=== PATIENT | male | born 1950 | race Hispanic/Latino ===

== ENCOUNTER 2023-03-26 12:45 | Emergency (ER) | payer BC, OTHER ==
[2023-03-26] MEDS ORDERED: ASPIRIN 81 MG CHEWABLE TABLET ONE (13:10)
[2023-03-26 13:15] LABS: Absolute Lymphocytes (CBC) 1.2 K/uL (0.7-4.9); Hematocrit 41.1 % (39.6-49.0); Lymphocytes % 14.2 % (15.3-44.8); MPV 8.4 fL (7.6-11.3); RBC Red Blood Cell Count 4.51 M/uL (4.33-5.43)
[2023-03-26] MEDS ORDERED: HEPARIN 5000 UNIT/ML 1 ML VIAL ONE (13:18)
[2023-03-26] MEDS ORDERED: FENTANYL CITR 100 MCG/2 ML ONE (13:19)
[2023-03-26] MEDS ORDERED: HEPARIN/D5W 25,000 UNIT/500 ML BAG IV ONE (13:19)
[2023-03-26] MEDS ORDERED: TENECTEPLASE 50 MG/10 ML VIAL IV ONE (13:23)
--- NOTE | 2023-03-26 13:23 | ER ---
Nurse's Notes [facility] Name: Davie Adair Age: 72 yrs Sex: Male : 1950 Arrival Date: 03/26/2023 Time: 12:45 Bed 4 Private MD: Diagnosis: ST elevation (STEMI) myocardial infarction of inferior wall Presentation: 03/26 12:55 Chief complaint: Patient states: CP since 8 am, started while shoveling sand. ll1 Coronavirus screen: Vaccine status: Patient reports being unvaccinated. Client denies travel out of the [place] in the last 14 days. At this time, the client does not indicate any symptoms associated with coronavirus-19. Ebola Screen: Patient denies travel to an Ebola-affected area in the 21 days before illness onset. Initial Sepsis Screen: Does the patient meet any 2 criteria? No. Patient's initial sepsis screen is negative. Does the patient have a suspected source of infection? No. Patient's initial sepsis screen is negative. Risk Assessment: Do you want to hurt yourself or someone else? Patient reports no desire to harm self or others. Onset of symptoms was March 26, 2023. 12:55 Method Of Arrival: Ambulatory ll1 12:55 Acuity: STEVAN 3 ll1 Triage Assessment: 14:07 General: Appears uncomfortable, Behavior is calm, cooperative, appropriate for age. ll1 Pain: Complains of pain in chest Quality of pain is described as pressure. Cardiovascular: Reports chest pain, diaphoresis, fatigue, nausea. Historical: - Allergies: 12:55 No Known Allergies; ll1 - PMHx: 12:55 Diabetes mellitus; Hypertensive disorder; ll1 - PSHx: 12:55 None; ll1 - Immunization history:: Adult Immunizations up to date, Client reports having NOT received the Covid vaccine. - Social history:: Smoking status: Patient denies any tobacco usage or history of. Screenin:23 [facility] ED Fall Risk Assessment (Adult) History of falling in the last 3 months, jl7 including since admission No falls in past 3 months (0 pts) Confusion or Disorientation No (0 pts) Intoxicated or Sedated No (0 pts) Impaired Gait No (0 pts) Mobility Assist Device Used No (0 pt) Altered Elimination No (0 pt) Score/Fall Risk Level 0 - 2 = Low Risk Oriented to surroundings, Maintained a safe environment. Abuse screen: Denies threats or abuse. Denies injuries from another. Nutritional screening: No deficits noted. Tuberculosis screening: No symptoms or risk factors identified. Assessment: 13:25 Reassessment: No changes from previously documented assessment. Patient and/or family ll1 updated on plan of care and expected duration. Pain level reassessed. Patient is alert, oriented x 3, equal unlabored respirations, skin warm/dry/pink. 14:08 Pain: Pain does not radiate. Pain began 4 hours ago. ll1 14:08 Reassessment: No changes from previously documented assessment. Patient and/or family ll1 updated on plan of care and expected duration. Pain level reassessed. Patient is alert, oriented x 3, equal unlabored respirations, skin warm/dry/pink. 14:09 Reassessment: No changes from previously documented assessment. Report [facility] to [facility]. Vital Signs: 13:08 Weight 67.13 kg; jl7 13:13 BP 136 / 77; Pulse 63; Resp 16; Temp 97.4; Pulse Ox 98% on R/A; Weight 67.13 kg; Height ll1 5 ft. 7 in. ; Pain 8/10; 13:33 BP 136 / 75; Pulse 70; Resp 20; Pulse Ox 96% on R/A; ph 13:45 BP 117 / 79; Pulse 47; Resp 14; Pulse Ox 99% on 2 lpm NC; ph 13:56 BP 103 / 54; Pulse 46; Resp 20; Pulse Ox 98% on R/A; ll1 14:03 BP 108 / 57; Pulse 50; Resp 16; Pulse Ox 100% 2 lpm ; ll1 13:13 Body Mass Index 23.18 (67.13 kg, 170.18 cm) ll1 13:13 Pain Scale: Adult 1 ED Course: 12:47 Patient arrived in ED. im 12:47 Arm band placed on Patient placed in an exam room, on a stretcher. ll1 12:47 Patient has correct armband on for positive identification. Client placed on continuous jl7 cardiac and pulse oximetry monitoring. NIBP monitoring applied. 12:49 [facility] 8 12:49 Jonas Huang MD is Attending Physician. jr8 12:49 Attending Physician role handed off by Jonas Huang MD bs3 12:49 Conner Kim MD is Attending Physician. bs3 12:55 Jessica Jo, JANY is Primary Nurse. ll1 12:56 Triage completed. ll1 13:00 Initial lab(s) drawn, by ED staff, sent to lab. EKG done, by ED staff, reviewed by Maicol nicolas Roszak PA Inserted by JANY Lopez. Inserted saline lock: 20 gauge in right antecubital area, using aseptic technique. Blood collected. 13:05 Inserted saline lock: 20 gauge in right antecubital area, using aseptic technique. ll1 Blood collected. 13:24 Inserted saline lock: 20 gauge in left antecubital area, using aseptic technique. jl7 Patient maintains SpO2 saturation greater than 95% on room air. 13:33 No provider procedures requiring assistance completed. Patient transferred, IV remains ph in place. 13:37 XRAY Chest (1 view) In Process Unspecified. EDMS Administered Medications: 13:11 CANCELLED (Duplicate Order): Heparin (SD-Bolus with thrombolytic) - HEParin IVP 60 ph units/kg IVP once; Max 4000 units 13:13 Drug: Aspirin PO Chewable Tablet 324 mg Route: PO; ll1 13:55 Follow up: Response: No adverse reaction ll1 13:19 Drug: Heparin (SD-Bolus with thrombolytic) - HEParin IVP 60 units/kg {Co-Signature: ph ll1 (Floridalma Iverson RN).} Route: IVP; Site: right antecubital; 13:56 Follow up: Response: No adverse reaction ll1 13:20 Drug: Tenecteplase IV 35 mg {Co-Signature: ph (Floridalma Iverson RN).} Route: IV; Rate: ll1 bolus; Site: left antecubital; 13:56 Follow up: IV Status: Completed infusion; IV Intake: 7ml ll1 13:21 Drug: Heparin (SD Drip) - (D5W IV 500 ml, [place] [address] units) 12 units/kg/hr ll1 {Co-Signature: ph (Floridalma Iverson RN).} Route: IV; Rate: calculated rate; Site: right antecubital; 14:07 Follow up: Response: No adverse reaction; IV Status: Infusion continued ll1 13:24 Not Given (physician changed order): HEParin IV 5000 units IV at bolus once ll1 13:55 Drug: Ondansetron IVP 4 mg Route: IVP; Site: left antecubital; ll1 14:07 Follow up: Response: No adverse reaction; Nausea is decreased ll1 Medication: 13:25 VIS not applicable for this client. jl7 Intake: 13:56 IV: 7ml; Total: 7ml. ll1 Outcome: 13:23 ER care complete, transfer ordered by . hernandez 14:08 Transferred by helicopter to [facility], Transfer form completed. ll1 Note: Report called to [facility] [place] 14:08 Condition: stable 14:08 Instructed on the need for transfer. 14:14 Patient left the ED. ll1 Signatures: Dispatcher [employer] EDMS Maicol Khoury PA PA jr8 Floridalma Iverson, JANY RN ph Eloisa Nielsen RN RN jl7 Jessica Jo RN RN ll1 Conner Kim MD MD bs3 Alma Morris Patricia RN ph
--- NOTE | 2023-03-26 13:23 | EDPHYS ---
Physician Documentation [facility] Name: Davie Adair Age: 72 yrs Sex: Male : 1950 Arrival Date: 03/26/2023 Time: 12:45 Bed 4 Private MD: ED Physician Conner Kim HPI: 03/26 13:10 This 72 yrs old Male presents to ER via Ambulatory with complaints of Chest jr8 Pain. 13:10 Onset: The symptoms/episode began/occurred acutely, today, at 09:00. Associated signs jr8 and symptoms: Pertinent positives: The patient does not have any pertinent positive signs or symptoms associated with pediatric illness. 13:17 Modifying factors: The patient symptoms are alleviated by nothing, the patient symptoms jr8 are aggravated by activity. The patient has not experienced similar symptoms in the past. The patient has not recently seen a physician. 72-year-old male patient presented to the emergency room with sudden onset chest pain 09 100 this morning while working in the yard. Went in the house to rest and was unrelieved with pain. Told family at that time which brought him to the emergency room.. Historical: - Allergies: 12:55 No Known Allergies; ll1 - PMHx: 12:55 Diabetes mellitus; Hypertensive disorder; ll1 - PSHx: 12:55 None; ll1 - Immunization history:: Adult Immunizations up to date, Client reports having NOT received the Covid vaccine. - Social history:: Smoking status: Patient denies any tobacco usage or history of. ROS: 13:17 Eyes: Negative for injury, pain, redness, and discharge, ENT: Negative for injury, jr8 pain, and discharge, Neck: Negative for injury, pain, and swelling, Respiratory: Negative for shortness of breath, cough, wheezing, and pleuritic chest pain, Abdomen/GI: Negative for abdominal pain, nausea, vomiting, diarrhea, and constipation, Back: Negative for injury and pain, MS/Extremity: Negative for injury and deformity, Skin: Negative for injury, rash, and discoloration, Neuro: Negative for headache, weakness, numbness, tingling, and seizure. 13:17 Cardiovascular: Positive for chest pain, Negative for edema, orthopnea, palpitations, paroxysmal nocturnal dyspnea. Exam: 13:17 Eyes: Pupils equal round and reactive to light, extra-ocular motions intact. Lids and jr8 lashes normal. Conjunctiva and sclera are non-icteric and not injected. Cornea within normal limits. Periorbital areas with no swelling, redness, or edema. ENT: Nares patent. No nasal discharge, no septal abnormalities noted. Tympanic membranes are normal and external auditory canals are clear. Oropharynx with no redness, swelling, or masses, exudates, or evidence of obstruction, uvula midline. Mucous membranes moist. Neck: Trachea midline, no thyromegaly or masses palpated, and no cervical lymphadenopathy. Supple, full range of motion without nuchal rigidity, or vertebral point tenderness. No Meningismus. Cardiovascular: Regular rate and rhythm with a normal S1 and S2. No gallops, murmurs, or rubs. Normal PMI, no JVD. No pulse deficits. Respiratory: Lungs have equal breath sounds bilaterally, clear to auscultation and percussion. No rales, rhonchi or wheezes noted. No increased work of breathing, no retractions or nasal flaring. Abdomen/GI: Soft, non-tender, with normal bowel sounds. No distension or tympany. No guarding or rebound. No evidence of tenderness throughout. Back: No spinal tenderness. No costovertebral tenderness. Full range of motion. Skin: Warm, dry with normal turgor. Normal color with no rashes, no lesions, and no evidence of cellulitis. MS/ Extremity: Pulses equal, no cyanosis. Neurovascular intact. Full, normal range of motion. Neuro: Awake and alert, GCS 15, oriented to person, place, time, and situation. Motor strength 5/5 in all extremities. Sensory grossly intact. 13:17 ECG was reviewed by the Attending Physician. Vital Signs: 13:08 Weight 67.13 kg; jl7 13:13 BP 136 / 77; Pulse 63; Resp 16; Temp 97.4; Pulse Ox 98% on R/A; Weight 67.13 kg; Height ll1 5 ft. 7 in. ; Pain 8/10; 13:33 BP 136 / 75; Pulse 70; Resp 20; Pulse Ox 96% on R/A; ph 13:45 BP 117 / 79; Pulse 47; Resp 14; Pulse Ox 99% on 2 lpm NC; ph 13:56 BP 103 / 54; Pulse 46; Resp 20; Pulse Ox 98% on R/A; ll1 14:03 BP 108 / 57; Pulse 50; Resp 16; Pulse Ox 100% 2 lpm ; ll1 13:13 Body Mass Index 23.18 (67.13 kg, 170.18 cm) ll1 13:13 Pain Scale: Adult ll1 MDM: 12:49 Patient medically screened. bs3 13:17 Data reviewed: vital signs, nurses notes, lab test result(s), EKG, radiologic studies, jr8 plain films, I have discussed the patient's presentation/case with the attending Emergency Department Physician;. Consideration of Admission/Observation Escalation of care including admission/observation considered. Management of patient was discussed with the following: Interventional cardiology. I considered the following discharge prescriptions or medication management in the emergency department Medications were administered in the Emergency Department. See MAR. Counseling: I had a detailed discussion with the patient and/or guardian regarding: the historical points, exam findings, and any diagnostic results supporting the discharge/admit diagnosis, lab results, radiology results, the need to transfer to another facility, [facility] does not immediately have the required specialist, No interventional cardiology on today as it is a holiday. Transferring to [facility]. ED course: Discussed case with budget specialist at [facility] who agreed patient is having acute IA. Patient will be going straight to [facility]. [facility] will be picking up patient here. We will continue to stabilize and monitor. 13:23 Differential diagnosis: NSTEMI, STEMI, Unstable Angina, Aortic Aneurysm, Aortic jr8 Dissection. 03/26 12:54 Order name: Basic Metabolic Panel; Complete Time: 13:03/26 12:54 Order name: CBC with Diff; Complete Time: 13:24 03/26 12:54 Order name: Magnesium; Complete Time: 13:03/26 12:54 Order name: NT PRO-BNP; Complete Time: 13:56 03/26 12:54 Order name: Troponin HS; Complete Time: :03/26 13:09 Order name: PT-INR; Complete Time: 13:33 03/26 13:09 Order name: Ptt, Activated; Complete Time: 13:33 03/26 12:54 Order name: XRAY Chest (1 view); Complete Time: 13:56 8 05/29 12:54 Order name: EKG; Complete Time: 12:03/26 12:54 Order name: Cardiac monitoring; Complete Time: 13:03/26 12:54 Order name: EKG - Nurse/Tech; Complete Time: 13:03/26 12:54 Order name: IV Saline Lock; Complete Time: 13:03/26 12:54 Order name: Labs collected and sent; Complete Time: 13:03/26 12:54 Order name: O2 Per Protocol; Complete Time: 13:03/26 12:54 Order name: O2 Sat Monitoring; Complete Time: 13: EC:17 Rate is 63 beats/min. Rhythm is regular, Sinus Rhythm. QRS [place] is Normal. [place] interval jr8 is normal at 158 msec. QRS interval is normal at 96 msec. QT interval is normal at 405 msec. No Q waves. T waves are Inverted in leads V2, V3, V4. ST Segment is elevated in leads III, aVF, 1-2mm. ST Segment is depressed in leads V2, V3, V4, 2-5mm. Clinical impression: Inferior IA - acute. Interpreted by me. Reviewed by me. Administered Medications: 13:11 CANCELLED (Duplicate Order): Heparin (IA-Bolus with thrombolytic) - HEParin IVP 60 ph units/kg IVP once; Max 4000 units 13:13 Drug: Aspirin PO Chewable Tablet 324 mg Route: PO; ll1 13:55 Follow up: Response: No adverse reaction ll1 13:19 Drug: Heparin (IA-Bolus with thrombolytic) - HEParin IVP 60 units/kg {Co-Signature: ph ll1 (Floridalma Iverson RN).} Route: IVP; Site: right antecubital; 13:56 Follow up: Response: No adverse reaction ll1 13:20 Drug: Tenecteplase IV 35 mg {Co-Signature: ph (Floridalma Iverson RN).} Route: IV; Rate: ll1 bolus; Site: left antecubital; 13:56 Follow up: IV Status: Completed infusion; IV Intake: 7ml ll1 13:21 Drug: Heparin (IA Drip) - (D5W IV 500 ml, [place] [address] units) 12 units/kg/hr ll1 {Co-Signature: ph (Floridalma Iverson RN).} Route: IV; Rate: calculated rate; Site: right antecubital; 14:07 Follow up: Response: No adverse reaction; IV Status: Infusion continued ll1 13:24 Not Given (physician changed order): HEParin IV 5000 units IV at bolus once ll1 13:55 Drug: Ondansetron IVP 4 mg Route: IVP; Site: left antecubital; ll1 14:07 Follow up: Response: No adverse reaction; Nausea is decreased ll1 Disposition: 03/27 07:13 Co-signature as Attending Physician, Jonas Huang MD I reviewed the patient's care rn provided by the Advanced Practice Provider and agree with the diagnosis and treatment plan. Disposition Summary: 03/26/23 13:23 Transfer Ordered Transfer Location: [facility] jr8 Reason: Higher level of care jr8 Condition: Stable jr8 Problem: new jr8 Symptoms: have improved jr8 Accepting Physician: Dr. Montelongo (03/26/23 14:14) ll1 Diagnosis - ST elevation (STEMI) myocardial infarction of inferior wall jr8 Forms: - Medication Reconciliation Form jr8 - SBAR form jr8 Critical care time excluding procedures: 03/26 13:23 Critical care time: Bedside Care: 30 minutes, Consultation: 6 minutes, Family jr8 Intervention: 5 minutes. Total time: 41 minutes Signatures: Dispatcher [employer] EDMS Jonas Huang MD MD rn Roszak, Josh, PA PA jr8 Floridalma Iverson RN RN ph Jessica Jo RN RN ll1 Conner Kim MD MD bs3 Floridalma Iverson RN ph Corrections: (The following items were deleted from the chart) 13:11 13:07 Heparin (IA-Bolus with thrombolytic) - HEParin IVP 60 units/kg IVP once; Max 4000 ph units ordered. jr8 13:11 13:11 Heparin (IA-Bolus with thrombolytic) - HEParin IVP 60 units/kg IVP once; Max 4000 ph units ordered. ph 13:18 13:10 Onset: The symptoms/episode began/occurred acutely, today, at 09:00, jr8 jr8 14:14 13:23 Dr. Montelongo jr8 ll1
[2023-03-26 13:30] LABS: Protime INR 0.97
[2023-03-26 13:34] LABS: Magnesium 1.9 mg/dL (1.6-2.4); Potassium 3.9 mEq/L (3.5-5.1)
[2023-03-26 13:38] LABS: Troponin High Sensitivity 7940.2 pg/mL (<58.9)
--- NOTE | 2023-03-26 13:44 | RAD REPORT ---
EXAM DESCRIPTION: RAD - Chest Single View - 03/26/2023 1:35 pm CLINICAL HISTORY: CHEST PAIN COMPARISON: <Comparisons> FINDINGS: Lines: None. Lungs: No evidence of edema or pneumonia. Pleural: No significant pleural effusions or pneumothorax. Cardiac: The heart size is within normal limits. Mediastinum: Within normal limits. Bones: No acute fractures. Other: None IMPRESSION: No acute cardiopulmonary disease.
[2023-03-26] MEDS ORDERED: NA CHLORIDE 0.9% 500 ML ONE (13:55)
[2023-03-26] MEDS ORDERED: ONDANSETRON 4 MG/2 ML VIAL ONE (14:01)
[2023-03-26 14:57] VITALS: TEMP 97.4
[2023-03-26 15:02] VITALS: BP 108/57; O2SAT 100
--- NOTE | 2023-03-28 07:11 | EKG ---
Test Date: 2023-03-26 Test Time: 13:40:36 Water Service Supervisor: MATHEW MEASUREMENT RESULTS: Intervals: Rate: 94 AK: QRSD: 158 QT: 408 QTc: 510 Jenkins: P: AK: QRS: 239 T: 72 INTERPRETIVE STATEMENTS: Wide QRS rhythm Right bundle branch block Abnormal ECG Compared to ECG 07/02/2007 12:50:54 Uncertain supraventricular rhythm now present Right bundle-branch block now present Sinus bradycardia no longer present ST (T wave) deviation no longer present Electronically Signed On 03-28-23 07:07:09 CDT by Aldo Barnes
--- NOTE | 2023-03-28 14:41 | EKG ---
Test Date: 2023-03-26 Test Time: 13:04:38 Cloth Printer: MATHEW MEASUREMENT RESULTS: Intervals: Rate: 63 DC: 158 QRSD: 96 QT: 396 QTc: 405 Williamson: P: 63 DC: 158 QRS: 66 T: 112 INTERPRETIVE STATEMENTS: Normal sinus rhythm ST elevation, consider inferior injury or acute infarct ACUTE MS / STEMI Consider right ventricular involvement in acute inferior infarct Abnormal ECG Compared to ECG 07/02/2007 12:50:54 Myocardial infarct finding now present Myocardial infarct finding now present Sinus bradycardia no longer present ST (T wave) deviation still present Electronically Signed On 03-28-23 14:38:18 CDT by Reinaldo Call
== END 2023-03-26 14:14 | disposition short-term general hospital (02) ==
LOC: ER 12:45
DX: I21.19 ST elevation (STEMI) myocardial infarction involving other coronary artery of inferior wall (principal); I10 Essential (primary) hypertension; E11.9 Type 2 diabetes mellitus without complications
CPT/HCPCS: 92977; 93005 ×2; 85025; 80048; 36415; 83735; 85610; 85730; 84484; 83880; 71045; 99285; J1644; J3101; J2405; J7040; J3010

== ENCOUNTER 2024-01-29 17:04 | Emergency (ER) | payer OTHER ==
[2024-01-29] MEDS ORDERED: ACETAMINOPHEN 325 MG TABLET ONE (17:53)
[2024-01-29] MEDS ORDERED: HYDROCODONE/APAP 7.5/325 MG TAB ONE (17:53)
--- NOTE | 2024-01-29 18:37 | RAD REPORT ---
EXAM DESCRIPTION: RAD - Shoulder Right 2 View - 01/29/2024 6:22 pm CLINICAL HISTORY: PAIN COMPARISON: No comparisons FINDINGS: AC joint and glenohumeral joint arthritic changes are present. There is a fracture of the distal aspect of the right clavicle.
--- NOTE | 2024-01-29 19:10 | ER ---
Nurse's Notes [facility] Name: Davie Adair Age: 73 yrs Sex: Male : 1950 Arrival Date: 01/29/2024 Time: 17:04 Bed DX3 Private MD: Diagnosis: Fracture of clavicle Presentation: 01/28 17:23 Chief complaint: Patient states: Fall Sunday, co right shoulder pain. Has not taken nj1 anything for pain. Coronavirus screen: Vaccine status: Patient reports being unvaccinated. Ebola Screen: Patient denies travel to an Ebola-affected area in the 21 days before illness onset. Initial Sepsis Screen: Does the patient meet any 2 criteria? No. Patient's initial sepsis screen is negative. Does the patient have a suspected source of infection? No. Patient's initial sepsis screen is negative. Risk Assessment: Do you want to hurt yourself or someone else? Patient reports no desire to harm self or others. Onset of symptoms was January 25, 2024. 17:23 Method Of Arrival: Ambulatory [facility] 17:23 Acuity: STEVAN 3 [facility] Triage Assessment: 01/29 07:19 General: Appears. jj7 07:20 General: Behavior is. jj7 Historical: - Allergies: 01/28 17:25 No Known Allergies; nj1 - PMHx: 17:25 diabetes mellitus; Hypertensive disorder; tx1 - PSHx: 17:25 Coronary artery bypass graft; Carotid endarterectomy; nj1 - Immunization history:: Client reports having NOT received the Covid vaccine. - Infectious Disease History:: Denies. - Social history:: Smoking status: Patient denies any tobacco usage or history of. Screenin:17 [facility] ED Fall Risk Assessment (Adult) History of falling in the last 3 months, jj7 including since admission Yes- single mechanical fall (1 pt) Confusion or Disorientation No (0 pts) Intoxicated or Sedated No (0 pts) Impaired Gait No (0 pts) Mobility Assist Device Used No (0 pt) Altered Elimination No (0 pt) Score/Fall Risk Level 0 - 2 = Low Risk Oriented to surroundings, Maintained a safe environment, Educated pt \T\ family on fall prevention, incl call for assistance when getting out of bed. Abuse screen: Denies threats or abuse. Nutritional screening: No deficits noted. Tuberculosis screening: No symptoms or risk factors identified. Assessment: 19:17 General: Appears in no apparent distress. comfortable, Behavior is calm, cooperative, jj7 appropriate for age. Pain: Complains of pain in anterior aspect of right shoulder and posterior aspect of right shoulder. Musculoskeletal: Capillary refill < 3 seconds, is brisk, Range of motion: intact in all extremities, Reports pain in anterior aspect of right shoulder and posterior aspect of right shoulder. Vital Signs: 17:23 BP 147 / 73; Pulse 62; Resp 18; Temp 98(O); Pulse Ox 98% on R/A; Weight 67.59 kg; nj1 Height 5 ft. 6 in. ; 19:30 BP 139 / 79; Pulse 67; Resp 19; Pulse Ox 99% ; jj7 17:23 Body Mass Index 24.05 (67.59 kg, 167.64 cm) nj1 ED Course: 17:06 Patient arrived in ED. mg5 17:07 Amy Guzman PA-C is PHCP. sb4 17:07 Parviz Mccabe MD is Attending Physician. sb4 17:25 Triage completed. nj1 17:26 Arm band placed on right wrist. nj1 18:23 Shoulder Right (2 View) XRAY In Process Unspecified. EDMS 19:09 Donnell Poole MD is Referral Physician. sb4 19:17 Patient has correct armband on for positive identification. Bed in low position. Call jj7 light in reach. Adult w/ patient. Provided Education on: fall risk. 19:17 No provider procedures requiring assistance completed. Patient did not have IV access jj7 during this emergency room visit. Administered Medications: 17:55 Drug: Hydrocodone-Acetaminophen PO (7.5 mg-325 mg) 1 tabs PO once Route: PO; nj1 17:55 Drug: Acetaminophen PO 650 mg PO once Route: PO; nj1 19:30 Follow up: Response: Marked relief of symptoms jj7 Medication: 19:17 VIS not applicable for this client. jj7 Outcome: 19:09 Discharge ordered by . sb4 19:31 Discharged to home ambulatory, with family, pf1 19:31 Condition: stable 19:31 Discharge instructions given to patient, family, Instructed on discharge instructions, follow up and referral plans. Demonstrated understanding of instructions, follow-up care, medications, Prescriptions given X 1, 19:31 Patient left the ED. pf1 Signatures: Dispatcher [employer] Rishabh Juarez RN RN jj7 Amy Guzman PA-C PA-C sb4 Tania Calderon RN RN pf1 Nicole Rosales RN RN nj1 Jory Gunn 5
--- NOTE | 2024-01-29 19:10 | EDPHYS ---
Physician Documentation [facility] Name: Davie Adair Age: 73 yrs Sex: Male : 1950 Arrival Date: 01/29/2024 Time: 17:04 Bed DX3 Private MD: ED Physician Parviz Mccabe HPI: 01/28 17:36 This 73 yrs old Male presents to ER via Ambulatory with complaints of Fall sb4 Injury, Arm Injury. 17:36 patient was weed [place] in the ditch 4 days ago and fell onto his right shoulder and sb4 heard a "crack" he complains of pain, bruising, and decreased ROM. no head trauma, no bleeding. has not taken any medication for the pain. Historical: - Allergies: 17:25 No Known Allergies; nj1 - PMHx: 17:25 diabetes mellitus; Hypertensive disorder; nj1 - PSHx: 17:25 Coronary artery bypass graft; Carotid endarterectomy; nj1 - Immunization history:: Client reports having NOT received the Covid vaccine. - Infectious Disease History:: Denies. - Social history:: Smoking status: Patient denies any tobacco usage or history of. ROS: 17:37 Constitutional: Negative for fever, chills, and weight loss, Eyes: Negative for injury, sb4 pain, redness, and discharge, 17:37 MS/extremity: Positive for injury or acute deformity, decreased range of motion, ecchymosis, pain, swelling, tenderness, 17:37 All other systems are negative, Exam: 17:37 Constitutional: This is a well developed, well nourished patient who is awake, alert, sb4 and in no acute distress. Head/Face: Normocephalic, atraumatic. Eyes: Extra-ocular motions intact. Periorbital areas with no swelling, redness, or edema. ENT: Mucous membranes moist. Skin: Warm, dry with normal turgor. Normal color with no rashes, no lesions, and no evidence of cellulitis. Neuro: Awake and alert, GCS 15, oriented to person, place, time, and situation. Motor strength 5/5 in all extremities. Sensory grossly intact. 17:37 Musculoskeletal/extremity: ROM: limited active range of motion due to pain, limited passive range of motion due to pain, in the right arm, Circulation is intact in all extremities. Pulses: are normal with no appreciated deficits, Perfusion: the extremity is normally perfused throughout, Sensation intact. Joints: the right shoulder displays pain at rest, painful range of motion, swelling, tenderness, Vital Signs: 17:23 BP 147 / 73; Pulse 62; Resp 18; Temp 98(O); Pulse Ox 98% on R/A; Weight 67.59 kg; nj1 Height 5 ft. 6 in. ; 19:30 BP 139 / 79; Pulse 67; Resp 19; Pulse Ox 99% ; jj7 17:23 Body Mass Index 24.05 (67.59 kg, 167.64 cm) nj1 MDM: 17:29 Patient medically screened. sb4 19:09 Data reviewed: vital signs, nurses notes, radiologic studies, and as a result, I will sb4 discharge patient. Counseling: I had a detailed discussion with the patient and/or guardian regarding the historical points, exam findings, and any diagnostic results supporting the discharge/admit diagnosis, radiology results, the need for outpatient follow up, a orthopedic surgeon, to return to the emergency department if symptoms worsen or persist or if there are any questions or concerns that arise at home. 01/28 17:32 Order name: Shoulder Right (2 View) XRAY; Complete Time: 18:43 sb4 01/28 19:08 Order name: Shoulder Immobilizer; Complete Time: 19:27 sb4 Administered Medications: 17:55 Drug: Hydrocodone-Acetaminophen PO (7.5 mg-325 mg) 1 tabs PO once Route: PO; nj1 17:55 Drug: Acetaminophen PO 650 mg PO once Route: PO; nj1 19:30 Follow up: Response: Marked relief of symptoms jj7 Disposition: 20:24 Co-signature as Attending Physician, Parviz Mccabe MD I reviewed the patient's care rt provided by the Advanced Practice Provider and agree with the diagnosis and treatment plan. Disposition Summary: 01/29/24 19:09 Discharge Ordered Notes: Location: Home sb4 Problem: new sb4 Symptoms: have improved sb4 Condition: Stable sb4 Diagnosis - Fracture of clavicle sb4 Followup: sb4 - With: Donnell Poole MD - When: 10 - 14 days - Reason: Recheck today's complaints, Re-evaluation by your physician Discharge Instructions: - Discharge Summary Sheet sb4 - Clavicle Fracture sb4 Forms: - Thank You Letter sb4 - Patient Portal Instructions sb4 - Leadership Thank You Letter sb4 Prescriptions: - Tramadol 50 mg Oral Tablet - take 1 tablet ORAL route every 8 hours as needed; 12 tablet; Refills: 0, sb4 Product Selection Permitted Signatures: Dispatcher [employer] Amy Main PA-C PA-C sb4 Parviz Mccabe MD MD rt Nicole Rosales RN RN nj1 Rishabh Villeda RN jj7 Corrections: (The following items were deleted from the chart) 17:37 17:36 patient was weed eating in the ditch 4 days ago and fell onto his right shoulder. sb4 complains of pain, bruising, and decreased ROM. sb4
[2024-01-29 21:44] VITALS: BP 147/73; TEMP 98; O2SAT 98
== END 2024-01-29 19:31 | disposition home or self-care (01) ==
LOC: ER 17:04
DX: S42.031A Displaced fracture of lateral end of right clavicle, initial encounter for closed fracture (principal)
CPT/HCPCS: 99283